=== PATIENT | male | born 1955 | race Caucasian/White ===

== ENCOUNTER 2024-11-01 10:28 | Inpatient (IN) | payer MEDICARE ==
[~2024-11-01] VITALS: Ht 223.5 cm; Wt 87.3 kg
[2024-11-01] MEDS ORDERED: METF500T13 PO (11:14)
[2024-11-01] MEDS ORDERED: ROSU5TAB49 PO (11:15)
[2024-11-01] MEDS ORDERED: LISI10TA22 PO (11:15)
[2024-11-01] MEDS ORDERED: SEMA0.257 SQ (11:16)
[2024-11-01] MEDS ORDERED: SILD25TA2 PO (11:17)
[2024-11-01 11:33] LABS: BASO % 0.1 % (0.0-1.0); EOS % 0.1 % (0.0-3.0); HEMATOCRIT 39.4 % (42.0-52.0); HEMOGLOBIN 13.4 g/dl (13.5-17.5); LYMPH # 1.9 10^3/uL (1.5-5.0); LYMPH % 12.6 % (24.0-44.0); MEAN CORPUSCULAR HEMOGLOBIN 31.5 pg (27.0-33.0); MEAN CORPUSCULAR VOLUME 92.5 fl (80.0-96.0); MONO # 1.1 10^3/uL (0.0-0.8); MONO % 7.4 % (2.0-8.0); NEUTROPHILS % 79.4 % (36.0-66.0); PLATELET COUNT, AUTOMATED 214 10^3/uL (150-450); RED BLOOD COUNT 4.26 10^6/uL (4.30-6.10); WHITE BLOOD COUNT 15.2 10^3/uL (4.0-10.0)
[2024-11-01 11:39] LABS: CK-MB VALUE MASS 1.1 NG/ML (<3.6)
[2024-11-01 11:41] LABS: BLOOD UREA NITROGEN 21 MG/DL (9-23); CALCIUM LEVEL 8.9 MG/DL (8.3-10.6); CARBON DIOXIDE LEVEL 22 MMOL/L (20-31); CHLORIDE LEVEL 109 MMOL/L (98-107); CREATININE FOR GFR 0.83 MG/DL (0.70-1.30); GLOMERULAR FILTRATION RATE > 60.0 (>42); GLUCOSE, FASTING 231 MG/DL (74-106); POTASSIUM SERUM 4.5 MMOL/L (3.5-5.1); SODIUM LEVEL 143 MMOL/L (136-145)
[2024-11-01 11:43] LABS: THYROID STIMULATING HORMONE 0.615 uIU/ML (0.55-4.78)
[2024-11-01 11:50] LABS: CPK CREATINE PHOSPHOKINASE 84 U/L (46-171)
[2024-11-01] MEDS: ONDANSETRON 4MG 2ML VIAL IV ONE (12:40)
[2024-11-01] MEDS: ACETAMINOPHEN 325 MG TAB PO ONE (13:03)
[2024-11-01] MEDS: PERCOCET 5MG/325MG TAB PO ONE (14:24)
[2024-11-01] MEDS ORDERED: HOME MED LIST COMPLETE! XX SCH (14:40)
[2024-11-01 15:53] VITALS: BP 158/78; TEMP 97.3; O2SAT 100
[2024-11-01] MEDS ORDERED: GLUCAGON INJ 1MG VIAL SC PRN (17:25)
[2024-11-01] MEDS ORDERED: DEXTROSE 50% 50ML SYRINGE IV PRN (17:25)
[2024-11-01] MEDS ORDERED: GLUCOSE 4 GM CHEW PO PRN (17:25)
[2024-11-01] MEDS: INSULIN LISPRO (NovoLOG) PER UNIT SC SCH ×2 (18:00→21:00)
[2024-11-01] MEDS: ACETAMINOPHEN 325 MG TAB PO PRN (18:01)
[2024-11-01 20:22] VITALS: BP 126/64; TEMP 99.5; O2SAT 96
[2024-11-01] MEDS ORDERED: PILL CUTTER 1 EACH XX PRN (21:10)
[2024-11-01] MEDS: ROSUVASTATIN 10 MG TAB (CRESTOR) PO SCH (21:14)
[2024-11-01 23:51] VITALS: BP 144/71; TEMP 98.2; O2SAT 96
[2024-11-02] VITALS (7 sets, daily range): BP systolic 140–184; BP diastolic 75–84; TEMP 98.3–99.1; O2SAT 96–98
[2024-11-02 05:38] LABS: BASO % 0.2 % (0.0-1.0); EOS # 0.1 10^3/uL (0.0-0.5); EOS % 0.5 % (0.0-3.0); HEMATOCRIT 37.9 % (42.0-52.0); HEMOGLOBIN 12.7 g/dl (13.5-17.5); LYMPH # 2.6 10^3/uL (1.5-5.0); LYMPH % 15.9 % (24.0-44.0); MEAN CORPUSCULAR HEMOGLOBIN 30.3 pg (27.0-33.0); MEAN CORPUSCULAR HGB CONC 33.5 g/dl (32.0-36.5); MEAN CORPUSCULAR VOLUME 90.5 fl (80.0-96.0); MONO # 1.9 10^3/uL (0.0-0.8); MONO % 11.3 % (2.0-8.0); NEUTROPHILS # 11.8 10^3/uL (1.5-8.5); NEUTROPHILS % 71.7 % (36.0-66.0); PLATELET COUNT, AUTOMATED 195 10^3/uL (150-450); RED BLOOD COUNT 4.19 10^6/uL (4.30-6.10); WHITE BLOOD COUNT 16.4 10^3/uL (4.0-10.0)
[2024-11-02 05:59] LABS: BLOOD UREA NITROGEN 19 MG/DL (9-23); CALCIUM LEVEL 8.6 MG/DL (8.3-10.6); CARBON DIOXIDE LEVEL 24 MMOL/L (20-31); CHLORIDE LEVEL 112 MMOL/L (98-107); CREATININE FOR GFR 0.79 MG/DL (0.70-1.30); GLOMERULAR FILTRATION RATE > 60.0 (>42); GLUCOSE, FASTING 157 MG/DL (74-106); POTASSIUM SERUM 4.4 MMOL/L (3.5-5.1); SODIUM LEVEL 145 MMOL/L (136-145)
[2024-11-02] MEDS ORDERED: ACET-683 PO (12:04)
[2024-11-02] MEDS ORDERED: ONDA-282 PO (12:04)
[2024-11-02] MEDS: ONDANSETRON 4MG 2ML VIAL IV PRN (12:50)
[2024-11-02] MEDS ORDERED: oxyCODONE 5MG TAB PO PRN (12:50)
[2024-11-02] MEDS: PANTOPRAZOLE 40MG VIAL IV ONE (12:55)
[2024-11-02] MEDS: KETOROLAC 30 MG/ML 1ML VIAL IV ONE (12:55)
[2024-11-02] MEDS ORDERED: OXYC-517 PO (13:43)
[2024-11-02] MEDS ORDERED: MUPI2OI TOP (13:45)
[2024-11-02 14:03] LABS: ALBUMIN 3.3 G/DL (3.2-5.2); ALKALINE PHOSPHATASE 41 U/L (40-129); ALT/SGPT 14 U/L (7.0-40); AST/SGOT 11 U/L (<34); BILIRUBIN,DIRECT 0.3 MG/DL (<0.4); BILIRUBIN,TOTAL 0.7 MG/DL (0.3-1.2); TOTAL PROTEIN 6.4 G/DL (5.7-8.2)
[2024-11-02] MEDS: PANTOPRAZOLE 40MG TAB (PROTONIX) PO SCH (20:02)
[2024-11-02] MEDS: NEOSPORIN TOP OINT 15GM TOP SCH (20:03)
[2024-11-03 04:36] VITALS: BP 163/85; TEMP 98.6; O2SAT 97
[2024-11-03 05:46] LABS: BASO % 0.2 % (0.0-1.0); EOS # 0.1 10^3/uL (0.0-0.5); EOS % 0.8 % (0.0-3.0); HEMATOCRIT 36.8 % (42.0-52.0); HEMOGLOBIN 12.4 g/dl (13.5-17.5); LYMPH # 2.5 10^3/uL (1.5-5.0); LYMPH % 18.9 % (24.0-44.0); MEAN CORPUSCULAR HEMOGLOBIN 30.7 pg (27.0-33.0); MEAN CORPUSCULAR HGB CONC 33.7 g/dl (32.0-36.5); MEAN CORPUSCULAR VOLUME 91.1 fl (80.0-96.0); MONO # 1.4 10^3/uL (0.0-0.8); MONO % 10.8 % (2.0-8.0); PLATELET COUNT, AUTOMATED 190 10^3/uL (150-450); RED BLOOD COUNT 4.04 10^6/uL (4.30-6.10)
[2024-11-03 06:07] LABS: BLOOD UREA NITROGEN 24 MG/DL (9-23); CALCIUM LEVEL 8.3 MG/DL (8.3-10.6); CARBON DIOXIDE LEVEL 24 MMOL/L (20-31); CHLORIDE LEVEL 110 MMOL/L (98-107); GLOMERULAR FILTRATION RATE > 60.0 (>42); GLUCOSE, FASTING 155 MG/DL (74-106); POTASSIUM SERUM 4.3 MMOL/L (3.5-5.1); SODIUM LEVEL 142 MMOL/L (136-145)
[2024-11-03 07:51] VITALS: BP_SYST 165; BP_SYST 167; BP_SYST 172; BP_DIAS 82; BP_DIAS 94
[2024-11-03 08:07] VITALS: BP 160/88; TEMP 98.6; O2SAT 97
[2024-11-03 09:14] VITALS: BP 160/88
[2024-11-03] MEDS: lisinopriL 5 MG TAB PO SCH (09:14)
== END 2024-11-03 12:13 | disposition home or self-care (01) | DRG 86 ==
LOC: M ED 10:28 → EDBD 10:28 → M ED INP 10:29 → M PCU 15:19 → OBSVTOIN 11-02 16:45
PROVIDERS: ADMIT Internal Medicine Nephrology; ATTEND Internal Medicine Nephrology
DX: S06.6X1A Traumatic subarachnoid hemorrhage with loss of consciousness of 30 minutes or less, initial encounter (principal); Z68.1 Body mass index [BMI] 19.9 or less, adult; G90.3 Multi-system degeneration of the autonomic nervous system; E44.0 Moderate protein-calorie malnutrition; K86.2 Cyst of pancreas; S06.5X1A Traumatic subdural hemorrhage with loss of consciousness of 30 minutes or less, initial encounter; E78.5 Hyperlipidemia, unspecified; I10 Essential (primary) hypertension; N40.0 Benign prostatic hyperplasia without lower urinary tract symptoms; E11.43 Type 2 diabetes mellitus with diabetic autonomic (poly)neuropathy; N20.0 Calculus of kidney; R42 Dizziness and giddiness; W18.30XA Fall on same level, unspecified, initial encounter; Y92.009 Unspecified place in unspecified non-institutional (private) residence as the place of occurrence of the external cause; I44.0 Atrioventricular block, first degree; Z79.899 Other long term (current) drug therapy; Z96.652 Presence of left artificial knee joint; Z96.611 Presence of right artificial shoulder joint